=== PATIENT | female | born 1990 | race Caucasian/White ===

== ENCOUNTER 2017-06-22 09:17 | Emergency (ER) | payer BC ==
[~2017-06-22] VITALS: Ht 172.7 cm; Wt 82.5 kg
[2017-06-22 11:47] VITALS: BP 118/77
== END 2017-06-22 11:48 | disposition home or self-care (01) ==
LOC: EME 09:17
DX: S09.8XXA Other specified injuries of head, initial encounter (principal); S40.812A Abrasion of left upper arm, initial encounter; S40.811A Abrasion of right upper arm, initial encounter; S40.212A Abrasion of left shoulder, initial encounter; S40.211A Abrasion of right shoulder, initial encounter; S00.83XA Contusion of other part of head, initial encounter; Y09 Assault by unspecified means; F17.200 Nicotine dependence, unspecified, uncomplicated
CPT/HCPCS: 70450; 99281; 99283

== ENCOUNTER 2017-11-10 18:05 | Emergency (ER) | payer BC ==
[~2017-11-10] VITALS: Ht 172.7 cm; Wt 85.6 kg
[2017-11-10 19:08] LABS: APPEARANCE CLOUDY ((CLEAR)); BILIRUBIN NEGATIVE; BLOOD NEGATIVE; COLOR YELLOW ((YELLOW)); GLUCOSE (STRIP) NEGATIVE; KETONES NEGATIVE; LEUKOCYTES SMALL; NITRITE NEGATIVE; PROTEIN (STRIP) NEGATIVE; SPECIFIC GRAVITY 1.012 (1.000-1.030); UROBILINOGEN 0.2 MG/DL (0.2-1.0)
[2017-11-10 19:47] LABS: EPITHELIAL CELLS 4+ /HPF; MUCUS NONE SEEN /LPF
[2017-11-10 19:48] LABS: AMORPHOUS URATES CRYSTALS 2+; BACTERIA RARE /HPF; RED BLOOD CELLS NONE SEEN /HPF (0-5); UCUL ADDED? NO; WHITE BLOOD CELLS RARE /HPF (0-5)
[2017-11-10 20:05] VITALS: BP 0/0
== END 2017-11-10 20:07 | disposition home or self-care (01) ==
LOC: EME 18:05
PROVIDERS: Nurse Practitioner Family
DX: O26.892 Other specified pregnancy related conditions, second trimester (principal); R10.12 Left upper quadrant pain; R19.7 Diarrhea, unspecified; O99.332 Smoking (tobacco) complicating pregnancy, second trimester; F17.200 Nicotine dependence, unspecified, uncomplicated; Z3A.17 17 weeks gestation of pregnancy
CPT/HCPCS: 81003; 99281; 99284

== ENCOUNTER 2018-04-08 11:55 | Outpatient (CLI) | payer BC ==
[~2018-04-08] VITALS: Ht 172.7 cm; Wt 101.3 kg
[2018-04-08 13:28] VITALS: BP 114/76
[2018-04-08] MEDS ORDERED: PRENATAL TABLE1 EAC3 PO (13:39)
== END 2018-04-08 16:03 | disposition left against medical advice (07) ==
LOC: EME 11:55 → EDSTATUS 13:21 → 2WEST 13:22
DX: O9A.313 Physical abuse complicating pregnancy, third trimester (principal); S40.021A Contusion of right upper arm, initial encounter; Z3A.38 38 weeks gestation of pregnancy
CPT/HCPCS: 59025; 99281; 99283; G0378

== ENCOUNTER 2018-04-20 09:01 | Inpatient (IN) | payer BC, OTHER ==
[~2018-04-20] VITALS: Ht 172.7 cm; Wt 102.0 kg
[2018-04-20] VITALS (20 sets, daily range): BP systolic 104–146; BP diastolic 56–99
[~2018-04-20 09:01] MED LIST: PRENATAL TABLE1 EAC3 PO
[2018-04-20 11:52] LABS: AMPHETAMINE NEGATIVE (500 ng/mL); BARBITURATES NEGATIVE (200 ng/mL); BENZODIAZEPINES NEGATIVE (150 ng/mL); BUPRENORPHINE NEGATIVE (10 ng/mL); COCAINE NEGATIVE (150 ng/mL); METHADONE NEGATIVE (200 ng/mL); METHAMPHETAMINE NEGATIVE (500 ng/mL); OPIATES (MORPHINE) NEGATIVE (100 ng/mL); OXYCODONE NEGATIVE (100 ng/mL); PHENCYCLIDINE NEGATIVE (25 ng/mL); PROPOXYPHENE NEGATIVE (300 ng/mL); THC CANNABINOIDS PRESUMPTIVE POSITIVE (50 ng/mL); TRICYCLIC ANTIDEPRESSANTS NEGATIVE (300 ng/mL)
[2018-04-20 12:00] LABS: BASOPHIL (%) 0.3 % (0-1); BASOPHIL COUNT 0.1 K/uL (0-0.1); EOSINOPHIL (%) 0.5 % (0-5); EOSINOPHIL COUNT 0.1 K/uL (0-0.3); HEMATOCRIT 36.8 % (36.0-46.0); HEMOGLOBIN 12.4 G/DL (11.9-15.5); IMMATURE GRANULOCYTE (%) 1.8 % (0.0-0.7); LYMPHOCYTE (%) 9.5 % (15-42); LYMPHOCYTE COUNT 1.8 K/uL (1.0-2.8); MCH 30.9 PG (29.0-34.0); MCHC 33.7 G/DL (30.0-36.0); MCV 91.8 FL (83-99); MONOCYTE (%) 6.3 % (3-12); MONOCYTE COUNT 1.2 K/uL (0-0.8); NEUTROPHIL (%) 81.6 % (45-76); NEUTROPHIL COUNT 15.3 K/uL (1.8-6.4); PLATELET COUNT 264 K/uL (156-360); RBC DIS.WIDTH-CV 12.8 % (11.8-14.6); RBC DIS.WIDTH-SD 42.5 % (39-53); RED BLOOD COUNT 4.01 M/uL (3.80-5.20); WHITE BLOOD COUNT 18.7 K/uL (4.1-10.2)
[2018-04-21] VITALS (13 sets, daily range): BP systolic 99–141; BP diastolic 58–87
[2018-04-21] MEDS ORDERED: IBUPROFEN800 MG PO (07:29)
[2018-04-22 07:01] LABS: BASOPHIL (%) 0.4 % (0-1); BASOPHIL COUNT 0.1 K/uL (0-0.1); EOSINOPHIL (%) 1.1 % (0-5); EOSINOPHIL COUNT 0.2 K/uL (0-0.3); IMMATURE GRANULOCYTE (%) 0.9 % (0.0-0.7); LYMPHOCYTE (%) 11.1 % (15-42); LYMPHOCYTE COUNT 1.8 K/uL (1.0-2.8); MCH 30.4 PG (29.0-34.0); MCHC 33.1 G/DL (30.0-36.0); MCV 91.8 FL (83-99); MONOCYTE COUNT 1.2 K/uL (0-0.8); NEUTROPHIL (%) 79.5 % (45-76); NEUTROPHIL COUNT 13.1 K/uL (1.8-6.4); PLATELET COUNT 211 K/uL (156-360); RBC DIS.WIDTH-CV 12.7 % (11.8-14.6); RBC DIS.WIDTH-SD 42.5 % (39-53); WHITE BLOOD COUNT 16.4 K/uL (4.1-10.2)
[2018-04-22 07:08] LABS: HEMOGLOBIN 9.6 G/DL (11.9-15.5); RED BLOOD COUNT 3.16 M/uL (3.80-5.20)
[2018-04-22 07:42] VITALS: BP 117/71
[2018-04-23 07:24] VITALS: BP 134/76
== END 2018-04-23 11:34 | disposition home or self-care (01) | DRG 775 ==
LOC: LDRP-OP → 2WEST 09:02 → LDRP-OP 05-21 18:50
PROVIDERS: Advanced Practice Midwife; Obstetrics & Gynecology
PROC: 3E0S3BZ Introduction of Anesthetic Agent into Epidural Space, Percutaneous Approach (ICD-10-PCS; 2018-04-20)
PROC: 00HU33Z Insertion of Infusion Device into Spinal Canal, Percutaneous Approach (ICD-10-PCS; 2018-04-20)
PROC: 10E0XZZ Delivery of Products of Conception, External Approach (ICD-10-PCS; principal; 2018-04-21)
PROC: 10D07Z6 Extraction of Products of Conception, Vacuum, Via Natural or Artificial Opening (ICD-10-PCS; 2018-04-21)
PROC: 0HQ9XZZ Repair Perineum Skin, External Approach (ICD-10-PCS; 2018-04-21)
DX: O76 Abnormality in fetal heart rate and rhythm complicating labor and delivery (principal); O41.1231 Chorioamnionitis, third trimester, fetus 1; O99.324 Drug use complicating childbirth; F33.9 Major depressive disorder, recurrent, unspecified; O70.0 First degree perineal laceration during delivery; Z37.0 Single live birth; Z3A.40 40 weeks gestation of pregnancy; O99.344 Other mental disorders complicating childbirth; F12.10 Cannabis abuse, uncomplicated; O77.0 Labor and delivery complicated by meconium in amniotic fluid; O63.1 Prolonged second stage (of labor)
CPT/HCPCS: 84999; 85025; 87070; 87075; 87076; 87077; 87185; 87186; 87205; 88307; C1755; G0378; J0595; J2405; J3010; J7120